=== PATIENT | female | born 1985 | race Caucasian/White ===

== ENCOUNTER 2017-02-03 23:46 | Emergency (ER) | payer SELFPAY ==
[~2017-02-03] VITALS: Ht 152.4 cm; Wt 65.9 kg
[~2017-02-03 23:46] MED LIST: BACTRIM DS 8001 TAB PO; CEFTIN 250250 MG/TAB PO; CEPHALEXIN500 M1 PO; CIPRO 500MG TA500 MG PO; FLAGYL500 MG PO; HYDROXYZINE HCL25 MG PO; LORTAB 5/500 501 TAB PO; NO HOME MEDICATIONS; NORCO 325 MG-51 TAB PO; PREDNISONE20 MG PO; PYRIDIUM 100MG100 MG PO; ULTRAM 50MG TAB50 MG PO
[2017-02-03 23:49] VITALS: TEMP 98.2
[2017-02-04] MEDS ORDERED: PREDNISONE20 MG PO (00:10)
[2017-02-04 00:45] VITALS: BP 127/86; PULSE 93
== END 2017-02-04 00:45 | disposition home or self-care (01) ==
LOC: COL.ER 23:46
DX: L50.9 Urticaria, unspecified (principal); F32.9 Major depressive disorder, single episode, unspecified; F41.9 Anxiety disorder, unspecified; F17.210 Nicotine dependence, cigarettes, uncomplicated
CPT/HCPCS: J1200; J2930

== ENCOUNTER 2021-10-25 01:11 | Emergency (ER) | payer SELFPAY ==
[~2021-10-25] VITALS: Ht 154.9 cm; Wt 67.3 kg
[2021-10-25 01:14] VITALS: BP 149/91; TEMP 98
[2021-10-25 01:51] VITALS: PULSE 98
== END 2021-10-25 01:51 | disposition home or self-care (01) ==
LOC: COL.ER 01:11
DX: S61.411A Laceration without foreign body of right hand, initial encounter (principal); W26.8XXA Contact with other sharp object(s), not elsewhere classified, initial encounter

== ENCOUNTER 2021-11-01 19:27 | Emergency (ER) | payer SELFPAY ==
[~2021-11-01] VITALS: Ht 154.9 cm; Wt 67.3 kg
[~2021-11-01 19:27] MED LIST changes: -DOXYCYCLINE HY100 MG PO; -VIVLODEX5 MG PO
[2021-11-01 19:31] VITALS: TEMP 97.2
[2021-11-01] MEDS ORDERED: VIVLODEX5 MG PO (19:42)
[2021-11-01] MEDS ORDERED: DOXYCYCLINE HY100 MG PO (20:43)
[2021-11-01] MEDS ORDERED: FLAGYL500 MG PO (20:43)
[2021-11-01 21:01] VITALS: BP 159/102; PULSE 99
== END 2021-11-01 21:03 | disposition home or self-care (01) ==
LOC: COL.ER 19:27
DX: N76.0 Acute vaginitis (principal); F17.210 Nicotine dependence, cigarettes, uncomplicated; Z11.3 Encounter for screening for infections with a predominantly sexual mode of transmission; Z28.310 Unvaccinated for COVID-19
CPT/HCPCS: J0696

== ENCOUNTER → 2021-11-01 | Outpatient (CLI) | payer SELFPAY ==
[~2021-11-01] MED LIST changes: +DOXYCYCLINE HY100 MG PO; +VIVLODEX5 MG PO
[2021-11-01 21:00] VITALS: PULSE 99
== END ==
LOC: COL.ER 19:47
DX: Z48.02 Encounter for removal of sutures (principal); Z28.310 Unvaccinated for COVID-19

== ENCOUNTER → 2023-11-13 | Outpatient (CLI) | payer OTHER ==
[~2023-11-13] MED LIST changes: +AMOXICILLIN 8751 TAB PO; +DOXYCYCLINE HY100 MG PO; +VIVLODEX5 MG PO
== END ==
LOC: COL.RAD 05:48
DX: M79.89 Other specified soft tissue disorders (principal)